=== PATIENT | female | born 1945 | race Caucasian/White ===

== ENCOUNTER 2016-06-07 13:52 | Emergency (ER) | payer MEDICARE, BC ==
--- NOTE | 2016-06-15 19:06 | ER ---
ADMIT: 06/07/2016 RM/LOC: ER [facility] MR#: [id number] [place], [place] [id number] [address] [place] [address] Emergency Room Report SEX: F AGE: 70 : 1945 DATE: 06/07/2016 HISTORY OF PRESENT ILLNESS: The patient is a 70-year-old female with past medical history of atrial fibrillation and hypertension, came to the ER with chief complaint of right posterior lower chest pain, which started after falling 4 steps down on the back about 2 weeks ago. The patient denies any head trauma and loss of conscious. The patient states the pain at that time was 9/10 and at the moment came to 4-5/10, but is still present, and the patient takes Advil to control the pain. The pain is aching and does not increase with inspiration, but mildly increases with palpation. There is no radiation of the pain. The patient denies any hematuria or other abdominal pain. PHYSICAL EXAMINATION: VITAL SIGNS: The patient had stable vitals, in no obvious pain or distress, sitting on the bed and very cooperatively answering the questions. HEAD AND NECK: Noncontributory, pupils 3 mm, reactive to light, spine no midline tenderness or step-offs. LUNGS: Normal bilateral equal breath sounds. HEART: Normal S1, S2 without any gallops or any murmurs. ABDOMEN: Soft, the patient had very mild tenderness in the right posterior lower chest just in the midscapular line. There is no crepitation. The rest of the physical exam was noncontributory. Chest x-ray did not show any pneumothorax or any obvious rib fracture. UA was sent to the lab, the patient was observed, did not develop any new symptoms. At this stage, the patient had no abdominal pain, any signs of hollow viscus injury or solid organ injury. The patient can be discharged to home with followup with the primary care doctor as needed and with strict return precautions. The patient agreed with the plan and was discharged to home. Lambert Jones MD/ geeta JOB #: [id number] CC: Olayinka Beatty MD, Attending Physician Dunia Del Rio MD, Family Physician
== END 2016-06-07 16:55 | disposition home or self-care (01) ==
LOC: ER 13:52
DX: S20.211A Contusion of right front wall of thorax, initial encounter (principal); I10 Essential (primary) hypertension; J45.909 Unspecified asthma, uncomplicated; Z79.899 Other long term (current) drug therapy; W10.9XXA Fall (on) (from) unspecified stairs and steps, initial encounter; Y92.009 Unspecified place in unspecified non-institutional (private) residence as the place of occurrence of the external cause